=== PATIENT | male | born 1980 ===

== ENCOUNTER 2022-10-14 10:25 | Outpatient (CLI) | payer OTHER | END 2022-10-14 10:36 | disposition home or self-care (01) | LOC: RAD 10:25 | PROVIDERS: ATTEND Orthopaedic Surgery | DX: S92.011A Displaced fracture of body of right calcaneus, initial encounter for closed fracture (principal); S82.841A Displaced bimalleolar fracture of right lower leg, initial encounter for closed fracture ==